=== PATIENT | male | born 1980 | race Two or more races ===

== ENCOUNTER 2021-04-28 00:48 | Emergency (ER) | payer SELFPAY ==
[2021-04-28 05:27] LABS: HEMOGLOBIN 14.7 gm/dl (14.0-17.5); RED BLOOD COUNT 4.98 M/UL (4.20-5.50); WHITE BLOOD COUNT 6.9 K/UL (4.5-11.0)
[2021-04-28 05:46] LABS: BUN/CREATININE RATIO 22 (0-10)
[2021-04-28] MEDS ORDERED: PROTONIX40 MG PO (05:54)
[2021-04-28] MEDS ORDERED: CARAFATE 1 GM TA1 GM PO (05:54)
== END 2021-04-28 07:30 | disposition home or self-care (01) ==
LOC: ER1 00:48
PROVIDERS: Physician Assistant
DX: R10.13 Epigastric pain (principal); R07.89 Other chest pain; K21.9 Gastro-esophageal reflux disease without esophagitis; Z79.899 Other long term (current) drug therapy
CPT/HCPCS: 71045; 80053; 82550; 82553; 83690; 83874; 84484; 85025; 93005; 99285